=== PATIENT | female | born 1995 | race American Indian/Alaskan Native ===

== ENCOUNTER 2021-09-30 04:59 | Emergency (ER) | payer BC, MEDICAID ==
--- NOTE | 2021-09-30 05:26 | EDM.PDOC ---
<Smith Lara M - Last Filed: 09/30/21 06:34> ED HPI GENERAL MEDICAL PROBLEM - General Stated Complaint: 13 WEEKS, MISS MATTHEWS, VOMITING ALOT Time Seen by Provider: 09/30/21 05:10 Source of Information: Reports: Patient History Limitations: Reports: No Limitations - History of Present Illness INITIAL COMMENTS - FREE TEXT/NARRATIVE: This 26 yo female patient reports to the ED with nausea/vomiting. The patient reports she is , but had her first OB appointment last week at [facility]. During that appointment, the patient reported that she was approximately 13 weeks into the . According to the ultrasound, the fetus measured 6 weeks without a heartbeat. The patient denies any vaginal bleeding or discharge. Onset Date: 09/26/21 Duration: Constant, Getting Worse Location: Reports: Abdomen Quality: Reports: Other Severity: Moderate Improves with: Reports: None Worsens with: Reports: None Context: Reports: Other Associated Symptoms: Reports: Nausea/Vomiting Upper Abdomen Pain Score (Numeric/FACES): 8 - Related Data Allergies Allergy/AdvReac Type Severity Reaction Status Date / Time No Known Allergies Allergy Verified 09/30/21 05:40 Home Meds: Home Meds Vits #93/Iron Fum/FA [ Formula Tablet] 1 tab PO DAILY 09/30/21 [History] Past Medical History - Past Health History Medical/Surgical History: Denies Medical/Surgical History HEENT History: Reports: None Cardiovascular History: Reports: None Respiratory History: Reports: None Gastrointestinal History: Reports: None Genitourinary History: Reports: None BRICK TENDER History: Reports: Spontaneous Musculoskeletal History: Reports: Other (See Below) Other Musculoskeletal History: MENISCUS KNEE TEAR; SPRAIN OF MEDIAL COLLAT LIGAMENT Neurological History: Reports: None Psychiatric History: Reports: None Endocrine/Metabolic History: Reports: None Hematologic History: Reports: None Immunologic History: Reports: None Oncologic (Cancer) History: Reports: None Dermatologic History: Reports: Other (See Below) Other Dermatologic History: CONTACT DERMATITIS IN 2003 - Infectious Disease History Infectious Disease History: Reports: Chicken Pox - Past Surgical History Female Surgical History: Reports: Other (See Below) Musculoskeletal Surgical History: Reports: Other (See Below) ED ROS GENERAL - Review of Systems Review Of Systems: Comprehensive ROS is negative, except as noted in HPI. ED EXAM, GENERAL - Physical Exam Exam: See Below Exam Limited By: No Limitations General Appearance: Alert, WD/WN, Mild Distress Eye Exam: Bilateral Eye: EOMI, Normal Inspection, PERRL Ears: Normal External Exam, Normal Canal, Hearing Grossly Normal, Normal TMs Nose: Normal Inspection, Normal Mucosa, No Blood Throat/Mouth: Normal Inspection, Normal Lips, Normal Teeth, Normal Gums, Normal Oropharynx, Normal Voice, No Airway Compromise Head: Atraumatic, Normocephalic Neck: Normal Inspection, Supple, Non-Tender, Full Range of Motion Respiratory/Chest: No Respiratory Distress, Lungs Clear, Normal Breath Sounds, No Accessory Muscle Use, Chest Non-Tender Cardiovascular: Normal Peripheral Pulses, Regular Rate, Rhythm, No Edema, No Gallop, No JVD, No Murmur, No Rub GI/Abdominal: Normal Bowel Sounds, Soft, Non-Tender, No Organomegaly, No Distention, No Abnormal Bruit, No Mass, Pelvis Stable (Female) Exam: Deferred Rectal (Female) Exam: Deferred Back Exam: Normal Inspection, Full Range of Motion, NT Extremities: Normal Inspection, Normal Range of Motion, Non-Tender, Normal Capillary Refill, No Pedal Edema Neurological: Alert, Oriented, CN II-XII Intact, Normal Cognition, Normal Gait, Normal Reflexes, No Motor/Sensory Deficits Psychiatric: Normal Affect, Normal Mood Skin Exam: Warm, Dry, Intact, Normal Color, No Rash Lymphatic: No Adenopathy Course - Re-Assessments/Exams Free Text/Narrative Re-Assessment/Exam: 09/30/21 06:34 The patient was advised of the lab results. The patient reports she is feeling a little better after the Reglan and IV fluids. The patient was advised of the ultrasound order that has been placed. Departure - Departure Disposition: Home, Self-Care 01 Clinical Impression: Nausea and vomiting during prior to 22 weeks gestation - Discharge Information Instructions: Nausea and Vomiting, Adult Additional Instructions: Rx: Zofran ODT 4mg (#20) 1.) Follow up with your primary care provider in seven days for a repeat ultrasound to evaluate intrauterine growth. 2.) Drink small, frequent sips of water to stay hydrated but avoid nausea. 3.) Eat small, snack-sized meals to avoid nausea. Eat a bland diet, such as crackers, toast, applesauce. Avoid spicy, greasy, high-fat foods. 4.) You may take acetaminophen (Tylenol) 650mg every six hours for cramping, or apply a warm compress to the lower abdomen. 5.) Follow up with your primary care provider with any persistent cramping or vaginal bleeding. <Jillian Elena - Last Filed: 09/30/21 08:39> Course - Vital Signs Last Recorded V/S: Last Vital Signs Temp 98.3 F 09/30/21 05:29 Pulse 94 09/30/21 05:29 Resp 16 09/30/21 05:29 BP 90/70 09/30/21 05:29 Pulse Ox 98 09/30/21 05:29 - Orders/Labs/Meds Orders: Active Orders 24 hr Category Date Time Status OB Transvaginal [US] Urgent Exams 09/30/21 06:28 Ordered Labs: Laboratory Tests 09/30/21 09/30/21 09/30/21 Range/Units 05:29 05:29 05:29 WBC 6.2 (5.0-10.0) 10^3/uL RBC 4.12 L (4.2-5.4) 10^6/uL Hgb 12.4 (12.0-16.0) g/dL Hct 36.9 L (37.0-47.0) % MCV 89.6 (80-100) fL MCH 30.1 (27.0-34.0) pg MCHC 33.6 (33.0-35.0) g/dL Plt Count 187 (150-450) 10^3/uL Neut % (Auto) 86.2 H (42.2-75.2) % Lymph % (Auto) 7.4 L (20.5-50.1) % Eagle % (Auto) 4.8 (2-8) % Eos % (Auto) 1.4 (1.0-3.0) % Baso % (Auto) 0.2 (0.0-1.0) % Sodium 140 (136-145) mmol/L Potassium 3.7 (3.5-5.1) mmol/L Chloride 104 (98-107) mmol/L Carbon Dioxide 22 (21-32) mmol/L Anion Gap 17.7 H (7-13) mEq/L BUN 19 H (7-18) mg/dL Creatinine 0.74 (0.55-1.02) mg/dL Est Cr Clr Drug Dosing 108.96 mL/min Estimated GFR (MDRD) > 60 BUN/Creatinine Ratio 25.7 (No establ ref range) Glucose 105 H (70-99) mg/dL Calcium 8.3 L (8.5-10.1) mg/dL Total Bilirubin 0.6 (0.2-1.0) mg/dL AST 10 L (15-37) U/L ALT 22 (14-59) U/L Alkaline Phosphatase 47 (46-116) U/L Total Protein 7.0 (6.4-8.2) g/dL Albumin 3.9 (3.4-5.0) g/dL Globulin 3.1 Albumin/Globulin Ratio 1.3 HCG, Quant 12579 H (0-6) mIU/mL Meds: Medications Discontinued Medications Generic Name Dose Route Start Last Admin Trade Name Freq PRN Reason Stop Dose Admin Sodium Chloride 1,000 mls @ 999 mls/hr 09/30/21 05:13 09/30/21 05:34 Normal Saline IV 09/30/21 06:13 999 mls/hr .BOLUS ONE Administration Metoclopramide HCl 10 mg 09/30/21 05:13 09/30/21 05:35 Metoclopramide 10 Mg/2 Ml Sdv IVPUSH 09/30/21 05:14 10 mg ONETIME ONE Administration - Radiology Interpretation Free Text/Narrative:: [facility] Final Radiology Report Call: [phone] assistance Online chat: [email or web address] Name: MONA LLOYD Age: 26Years F Date: 09/30/2021 SSN: -- : 1995 Study: US OB LTD 1 OR MORE FETUS Requesting Physician: Smith Lara Images: 32 Addl Studies: Provided Clinical History: abdominal cramping, nausea Contrast: Without Contrast Medium: Contrast Amount: Contrast Method: Page 1 of 2 PROCEDURE INFORMATION: Exam: US , Limited Exam date and time: 09/30/2021 7:12 AM Age: 26 years old Clinical indication: Lmp or gestational age (in weeks): 13.6 weeks by lmp; ; Patient HX: Abdominal cramping, nausea, prior US 09/28/2021 [facility] showed no cardiac activity. TECHNIQUE: Imaging protocol: Real-time ultrasound of the maternal uterus with image documentation. Exam focused on the clinical indication. COMPARISON: No relevant prior studies available. FINDINGS: Gestation: Single intrauterine gestational sac. Chorioamniotic separation consistent with embryonic size. Embryonic/ heart rate: None identified. BIOMETRY: Mean sac diameter: 24.6 mm. Gestational age (AUA): 7 weeks 2 days; compare LMP 13 weeks 2 days. [place]-Rump length: 10.72 mm 7 weeks 2 days. MATERNAL: Uterus: Uterus 9.5 cm. Right ovary/adnexa: Right ovarian 17.5 mm physiologic follicle. IMPRESSION: Single intrauterine gestational sac. Persistent absence of embryonic cardiac activity consistent with intrauterine demise. Thank you for allowing us to participate in the care of your patient. Dictated and Authenticated by: Milind Torres MD 09/30/2021 8:18 AM Central Time ([place] & [place]) Departure - Departure Time of Disposition: 08:33 Condition: Fair - Discharge Information *PRESCRIPTION DRUG MONITORING PROGRAM REVIEWED*: Not Applicable *COPY OF PRESCRIPTION DRUG MONITORING REPORT IN PATIENT OLI: Not Applicable Sepsis Event Note (ED) - Focused Exam Vital Signs: Vital Signs Temp Pulse Resp BP Pulse Ox 09/30/21 05:29 98.3 F 94 16 90/70 98
[2021-09-30] MEDS: Sodium Chloride 0.9% 1,000 ML IV ONE (05:34)
[2021-09-30] MEDS: Metoclopramide 10 MG/2 ML SDV IVPUSH ONE (05:35)
[2021-09-30 05:50] VITALS: BP 90/70; PULSE 94
[2021-09-30 05:55] LABS: ANION GAP 17.7 mEq/L (7-13); CHLORIDE,CL 104 mmol/L (98-107); SODIUM,NA 140 mmol/L (136-145)
--- NOTE | 2021-09-30 08:19 | US ---
PROCEDURE INFORMATION: Exam: US , Limited Exam date and time: 09/30/2021 7:12 AM Age: 26 years old Clinical indication: Lmp or gestational age (in weeks): 13.6 weeks by lmp; ; Patient HX: Abdominal cramping, nausea, prior US 09/28/2021 [facility] showed no cardiac activity. TECHNIQUE: Imaging protocol: Real-time ultrasound of the maternal uterus with image documentation. Exam focused on the clinical indication. COMPARISON: No relevant prior studies available. FINDINGS: Gestation: Single intrauterine gestational sac. Chorioamniotic separation consistent with embryonic size. Embryonic/ heart rate: None identified. BIOMETRY: Mean sac diameter: 24.6 mm. Gestational age (AUA): 7 weeks 2 days; compare LMP 13 weeks 2 days. [place]-Rump length: 10.72 mm 7 weeks 2 days. MATERNAL: Uterus: Uterus 9.5 cm. Right ovary/adnexa: Right ovarian 17.5 mm physiologic follicle. IMPRESSION: Single intrauterine gestational sac. Persistent absence of embryonic cardiac activity consistent with intrauterine demise.
== END 2021-09-30 09:19 | disposition home or self-care (01) ==
LOC: DL.ED 04:59
DX: O21.9 Vomiting of pregnancy, unspecified (principal); Z3A.13 13 weeks gestation of pregnancy
CPT/HCPCS: 36415; 76815; 80053; 84702; 85025; 96374; 99284-25; J2765; J7030

== ENCOUNTER 2021-10-07 11:51 | Day surgery (SDC) | payer BC, MEDICAID ==
[~2021-10-07 11:51] MED LIST: Citric Acid/Sodium Citrate Solution 30 ML Cup PO ONE; Lactated Ringers 1,000 ML IV SCH; Misoprostol 400 MCG (4 X 100 MCG TAB) RECTAL ONE; Oxytocin/Normal Saline 30 UNIT/500 ML BAG IV SCH; ceFAZolin 2 GM in Premix Bag 1 BAG IV ONE
[2021-10-07] MEDS ORDERED: fentaNYL 100 MCG/2 ML SDV IV ONE (11:52)
[2021-10-07] MEDS ORDERED: Midazolam 1 MG/ML 2 ML SDV IV ONE (11:52)
[2021-10-07] MEDS ORDERED: Lidocaine 1% with EPINEPHrine 1:100,000 20 ML MDV ONE ×2 (11:52→12:00)
[2021-10-07] MEDS ORDERED: Ketorolac 30 MG/ML SDV IVPUSH ONE (11:52)
[2021-10-07] MEDS ORDERED: Dexamethasone 4 MG/ML SDV IV ONE (11:52)
[2021-10-07] MEDS ORDERED: Propofol 200 MG/20 ML SDV IV ONE (11:52)
[2021-10-07] MEDS ORDERED: Ondansetron 4 MG/2 ML SDV IV ONE (11:52)
[2021-10-07] MEDS ORDERED: Misoprostol 400 MCG (4 X 100 MCG TAB) ONE (12:00)
[2021-10-07] MEDS ORDERED: Citric Acid/Sodium Citrate Solution 30 ML Cup ONE (12:00)
[2021-10-07] MEDS ORDERED: Oxytocin/Normal Saline 0 UNIT/0 ML BAG ONE (12:01)
[2021-10-07] MEDS ORDERED: Silver Nitrate Applicator Each ONE (12:02)
[2021-10-07] MEDS ORDERED: Lidocaine 1% with EPINEPHrine 1:100,000 30 ML MDV NERVRT ONE ×2 (12:56)
[2021-10-07] MEDS ORDERED: Silver Nitrate Applicator Each TOP ONE (13:32)
[2021-10-07] MEDS ORDERED: Misoprostol 400 MCG (4 X 100 MCG TAB) RECTAL ONE (13:39)
[2021-10-07 14:55] VITALS: PULSE 48
[2021-10-07 15:05] VITALS: BP 97/55
--- NOTE | 2021-10-07 16:30 | US ---
PROCEDURE INFORMATION: Exam: US , Limited Exam date and time: 10/07/2021 1:23 PM Age: 26 years old Clinical indication: Lmp or gestational age (in weeks): ? D&c assist; ; Additional info: D&c guidance TECHNIQUE: Imaging protocol: Real-time ultrasound of the maternal uterus with image documentation. Exam focused on the clinical indication. COMPARISON: US OB Ltd 1 or More Fetus 09/30/2021 7:12 AM FINDINGS: Gestation: Irregular appearing gestational sac measures 1.6 x 2.9 by 0.87 cm. This is consistent with a 7 week 4 day gestation. heart rate: No cardiac or somatic activity. BIOMETRY: [place]-Rump length: [place]-rump length measures 1 cm. This is consistent with a gestational age of 7 weeks 2 days. MATERNAL: Right ovary/adnexa: 1.6 x 1.5 x 1.7 cm simple cyst, right ovary. IMPRESSION: Previously documented demise. Retained products of conception discussed above.
--- NOTE | 2021-10-07 19:52 | OR ---
DATE: 10/07/2021 PREPROCEDURE DIAGNOSIS: Missed . POSTPROCEDURE DIAGNOSIS: Missed . PROCEDURE PERFORMED: Suction dilatation and curettage with ultrasound guidance. GALLERY DIRECTOR: Camila Richardson MD. BRIEF HISTORY: A 26-year-old 2, para 1011 at 7 weeks 5 days gestation estimated at time of demise should have been closer to 13 to 14 weeks gestation at the time that she presented to the clinic with a known missed . Two ultrasounds verifying absence of heart tones and 0 growth of the fetus in the interval week and she was referred in from [facility]. She was not having any bleeding. Cramping a few days ago, and then cramping again on morning of admission, but not really passing the tissue on her own and wanting to have the uterus evacuated surgically given the circumstances. Please see my clinic notes for full details. CONSENT: Discussed with the patient and her boyfriend at the clinic, as well as the patient and her sister today, the indications, risks, benefits, and alternatives of surgical management of missed including decreased risk of hemorrhage requiring blood transfusion, decreased risk of needing a secondary surgical procedure, emotional closure and verification that all the contents get removed, which would also decrease infection risk. Discussed risks of procedure itself as it relates to anesthesia, potential bleeding requiring blood transfusion, risk of scarring inside the uterus making future more difficult, potential for uterine perforation causing injury to internal organs and adjacent structures including intestines, bladder, fallopian tubes, ovaries, and other adjacent structures, potential for lack of adequate removal and potential for delayed infection or hemorrhage complications. Her questions were answered and appropriate consent form signed and placed in the chart. ANESTHESIA: MAC. PROCEDURE DETAILS: Patient brought to the operating room and MAC anesthesia obtained and she was set up in the dorsal supine position and vaginal prep performed, and then in and out straight cath performed with return of 100 mL of clear urine. Weighted speculum and right angle retractor were used to obtain adequate visualization of the cervix. Single-tooth tenaculum placed on the anterior lip of the cervix, and attempting to sound the uterus was quite difficult as the internal os was stenotic. Smallest Hegar dilators were used to navigate through the internal os and the tenaculum was moved to the posterior cervical lip to straighten out the alignment of the uterus a little bit better, and then Hegar dilators used up to a size 8, after which time we were able to pass a sharp curette to start with the curetting and further dilating the internal os. We were then able to pass a suction catheter and start the suction curetting and return of mostly blood and organized clot type material and not the sufficient amounts of retained products of conception that we expected. Therefore, ultrasound guidance was called for, and at that time we could tell that we were limited to the lower uterine segment with an anteverted uterus. With ultrasound guidance, we then used sharp and suction curettes to evacuate all of the uterine contents and verified that on bedside ultrasound. The patient's bleeding was hemostatic, so the internal instruments were removed. Single-tooth tenaculum removed from the posterior cervix and there was no significant bleeding coming from the uterus. There was however a small tear of the posterior cervical lip from when the tenaculum was dislodged due to traction, and pressure was held and silver nitrate used to help with hemostasis. We were about to place a stitch for hemostasis; however, simply holding pressure was enough to control the bleeding. Finally, retractors were removed. The patient had tolerated the procedure well. 800 mcg of Cytotec was placed per rectum to help ensure uterine cramping and controlling hemostasis. FLUIDS: 500 mL of LR. ESTIMATED BLOOD LOSS: 75-100 cc. DISPOSITION: Patient to go to the PACU for initial recovery. Once she is tolerating oral intake and more awake, she will be discharged to the care of her sister a little bit later this afternoon. [facility] /[id number] JANIS
== END 2021-10-07 15:10 | disposition home or self-care (01) ==
LOC: DL.SDS 11:51
PROVIDERS: ATTEND Family Medicine
DX: O02.1 Missed abortion (principal); I08.0 Rheumatic disorders of both mitral and aortic valves; Z98.890 Other specified postprocedural states; Z01.812 Encounter for preprocedural laboratory examination; Z20.822 Contact with and (suspected) exposure to COVID-19
CPT/HCPCS: 00940; 36415; 59820; 76815; 85014; 85018; 86850; 86900; 86901; 87635; 90384; A9270; J0690; J1100; J1885; J2250; J2405; J2704; J3010; J7120; J2790; U0002